=== PATIENT | female | born 1990 | race Caucasian/White ===

== ENCOUNTER 2019-06-09 14:42 | Emergency (ER) | payer MEDICAID ==
[2019-06-09] MEDS ORDERED: FAMOTIDINE 20 MG/2 ML VIAL IV STA (14:51)
[2019-06-09] MEDS ORDERED: methylPREDNISolone SOD SUCCI 125 MG/2 ML VIAL IV STA (14:51)
[2019-06-09] MEDS ORDERED: EPINEPHrine 1 MG/ML 1 ML AMP IM STA (14:52)
[2019-06-09] MEDS ORDERED: SODIUM CHLORIDE 0.9% 500 ML 500 ML IV STA (14:59)
--- NOTE | 2019-06-09 14:59 | ED ---
Allergic Reaction HPI - General Chief complaint: Allergic Reaction Stated complaint: Allergic reaction Time Seen by Provider: 06/09/19 14:51 Source: patient, RN notes reviewed Mode of arrival: ambulatory Limitations: no limitations - History of Present Illness Initial Comments: This is a 29-year-old female with a known history of peanut ALLERGY who states she ate eggroll at a local oriented restaurant when very shortly thereafter she started developing a rash and shortness of breath and pruritus. She states she did take oral Benadryl 75 mg total did not use her EpiPen. She presents now with complaints of itchiness swelling to her face a rash she did take a treatment of her inhaler which has helped her breathing she states. She was wheezing and is now not wheezing. MD Complaint: allergic reaction, facial swelling, other - Related Data Previous Rx's Medication Instructions Recorded predniSONE 20 mg PO BID #10 tab 06/09/19 Allergies Allergy/AdvReac Type Severity Reaction Status Date / Time peanut Allergy Anaphylaxis Verified 06/09/19 14:46 Review of Systems ROS Statement: Those systems with pertinent positive or pertinent negative responses have been documented in the HPI. ROS Other: All systems not noted in ROS Statement are negative. Past Medical History Past Medical History: No Reported History Past Surgical History: No Surgical Hx Reported Past Psychological History: No Psychological Hx Reported Smoking Status: Never smoker Past Alcohol Use History: Unable to Obtain Past Drug Use History: None Reported General Exam - General Exam Comments Initial Comments: This is a well-developed well-nourished awake alert oriented 3 female Limitations: no limitations General appearance: alert, anxious, in distress Head exam: Present: atraumatic, normocephalic, normal inspection Eye exam: Present: other (Facial edema periorbital edema with erythema to the skin) ENT exam: Present: other (Hyperemia posterior pharynx though no evidence of any edema) Neck exam: Present: normal inspection, full ROM, other (No stridor JVD or bruits) Respiratory exam: Present: normal lung sounds bilaterally Cardiovascular Exam: Present: regular rate, tachycardia GI/Abdominal exam: Present: soft, normal bowel sounds. Absent: distended, tenderness, guarding, rebound, rigid Rectal exam: Present: deferred Extremities exam: Present: full ROM, normal capillary refill. Absent: tenderness, pedal edema, joint swelling, calf tenderness Back exam: Present: normal inspection Neurological exam: Present: alert, oriented X3, CN II-XII intact Psychiatric exam: Present: normal affect, anxious Skin exam: Present: warm, dry, intact, erythema (Consistent with ALLERGIC reaction). Absent: normal color, rash Course Vital Signs 06/09/19 06/09/19 06/09/19 14:44 14:56 15:25 Temperature 98.2 F Pulse Rate 120 H 86 Respiratory 22 26 H Rate Blood Pressure 134/71 O2 Sat by Pulse 100 98 Oximetry 06/09/19 15:55 Temperature Pulse Rate 77 Respiratory 16 Rate Blood Pressure 122/71 O2 Sat by Pulse 100 Oximetry - Reevaluation(s) Reevaluation #1: 06/09/19 15:28 Reevaluation patient reveals her color has improved with less erythema she is feeling nauseated at this time she will receive some Zofran. Lung sounds are clear to auscultation. Medical Decision Making - Medical Decision Making Patient is feeling much improved her skin color is return to normal. The edema in her face has improved markedly. Patient does have an epinephrine Home she does have Benadryl and histamine blockers she will be discharged a sinus or course of steroids she was cautioned about heat exposure. He is feeling improved with no nausea at this time no shortness breath or difficulty swallowing Critical Care Time Critical Care Time: Yes Critical Care Time: 31 minutes of critical care time which includes initial presentation with history physical and aggressive treatment in the emergency department. I did reevaluate patient also multiple occasions. This did include also documentation the above. Disposition Clinical Impression: Allergic reaction, Food allergy, Angioedema, Anaphylaxis Disposition: HOME SELF-CARE Condition: Good Instructions (If sedation given, give patient instructions): Anaphylaxis (ED), Peanut Allergy (ED) Prescriptions: predniSONE 20 mg PO BID #10 tab Is patient prescribed a controlled substance at d/c from ED?: No Referrals: Berlin Resendez DO [Primary Care Provider] - 1-2 days
[2019-06-09] MEDS ORDERED: ONDANSETRON 4 MG/2 ML VIAL IVP STA (15:19)
[2019-06-09 15:57] VITALS: BP 122/71; RESP 16
[2019-06-09 16:25] VITALS: PULSE 81; TEMP 98
== END 2019-06-09 16:24 | disposition home or self-care (01) ==
LOC: MERGE 14:42 → EC 14:42
DX: T78.1XXA Other adverse food reactions, not elsewhere classified, initial encounter (principal); T78.3XXA Angioneurotic edema, initial encounter; R00.0 Tachycardia, unspecified; Z91.010 Allergy to peanuts; Z53.20 Procedure and treatment not carried out because of patient's decision for unspecified reasons
CPT/HCPCS: 99285; 96374; 96375 ×2; 96372; J0171; J2930; J2405

== ENCOUNTER 2020-08-31 06:03 | Inpatient (IN) | payer BC, OTHER ==
--- NOTE | 2020-08-30 12:54 | P.HPOB ---
History of Present Illness H&P Date: 08/30/20 Chief Complaint: Induction of labor This is a 30 y.o. female, 1, para 0, with an estimated date of confinement of 08/29/2020, estimated gestational age of 40-2/7 weeks, who presents for induction of labor. She has frequent contractions, pressure, and leg swelling. course has been essentially uncomplicated. labs: GC/Chlamydia-neg Hepatitis B surface antigen-neg RPR-NR Rubella-immune Blood type-A+ Antibody screen-neg Hemoglobin-11.7 Random glucose-78 1 hr. GTT-149 3 hr. 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 Review of Systems Constitutional: Denies chills, Denies fever Eyes: denies blurred vision, denies pain Ears, nose, mouth and throat: Denies headache, Denies sore throat Cardiovascular: Denies chest pain, Denies shortness of breath Respiratory: Denies cough Gastrointestinal: Reports abdominal pain (irregular contractions) Genitourinary: Reports pelvic pain, Reports Musculoskeletal: Reports low back pain Musculoskeletal: bilateral: ankle swelling Integumentary: Denies pruritus, Denies rash Neurological: Denies numbness, Denies weakness Psychiatric: Denies anxiety, Denies depression Past Medical History Past Medical History: Asthma Additional Past Medical History / Comment(s): Migraines History of Any Multi-Drug Resistant Organisms: None Reported Past Surgical History: Breast Surgery (Excision benign mass, R. breast) Additional Past Surgical History / Comment(s): Removal heel spur R. ankle Past Anesthesia/Blood Transfusion Reactions: No Reported Reaction Past Psychological History: No Psychological Hx Reported Smoking Status: Never smoker Past Alcohol Use History: None Reported Past Drug Use History: None Reported - Past Family History Father Family Medical History: Hypertension Medications and Allergies Home Medications Medication Instructions Recorded Confirmed Type Albuterol Sulfate [Ventolin HFA] 1 - 2 puff INHALATION Q6H PRN 08/30/20 08/30/20 History Pnv,Calcium 72/Iron/Folic Acid 1 each PO 08/30/20 History [ Plus Tablet] Allergies Allergy/AdvReac Type Severity Reaction Status Date / Time peanut Allergy Anaphylaxis Verified 06/11/19 13:15 Exam Osteopathic Statement: *. No significant issues noted on an osteopathic structural exam other than those noted in the History and Physical/Consult. HEENT: within normal limits Heart: regular rate and rhythm Lungs: clear to auscultation bilaterally Abdomen: Cervix: 2 cm/70%/-2 heart tones: 140's by doppler Extremities: neg. Lico's Assessment and Plan (1) 40 weeks gestation of Status: Acute Code(s): Z3A.40 - 40 WEEKS GESTATION OF SNOMED Code(s): 60727767 Plan: Proceed with oxytocin induction of labor. Expectant management. Epidural anesthesia if desired.
[2020-08-31] MEDS ORDERED: OXYTOCIN 30 UNITS/500 ML NS 30 UNIT in SALINE 1 500ML.BAG IV SCH ×2 (06:16→18:20)
[2020-08-31] MEDS ORDERED: LIDOCAINE 1% (10MG/ML) FOR IV START INTRADERMA PRN (06:16)
[2020-08-31] MEDS ORDERED: LIDOCAINE 0.5% (PF) 5 MG/ML (50 ML SDV) SQ PRN (06:16)
[2020-08-31] MEDS ORDERED: TERBUTALINE 1 MG/ML VIAL SQ PRN (06:16)
[2020-08-31] MEDS ORDERED: METHYLERGONOVINE 0.2 MG/ML 1 ML AMP IM PRN (06:16)
[2020-08-31] MEDS ORDERED: OXYTOCIN 10 UNIT/ML 1 ML VIAL IM PRN (06:16)
[2020-08-31] MEDS ORDERED: CARBOPROST TROMETHAMINE 250 MCG/ML 1 ML AMP IM PRN (06:16)
[2020-08-31] MEDS: LACTATED RINGERS 1,000 ML IV SCH ×2 (06:30→15:15)
[2020-08-31 06:47] LABS: Basophils % (A) 0 %; Eosinophils # (A) 0.3 k/uL (0-0.7); Eosinophils % (A) 2 %; HCT 38.3 % (34.0-46.0); HGB 13.2 gm/dL (11.4-16.0); Lymphocytes # (A) 2.3 k/uL (1.0-4.8); Lymphocytes % (A) 18 %; MCH 31.4 pg (25.0-35.0); MCHC 34.5 g/dL (31.0-37.0); MCV 91.2 fL (80.0-100.0); Mean Platelet Volume 8.4; Monocytes # (A) 0.5 k/uL (0-1.0); Monocytes % (A) 4 %; Neutrophils # (A) 9.1 k/uL (1.3-7.7); Neutrophils % (A) 74 %; Platelet Count 263 k/uL (150-450); RDW 12.6 % (11.5-15.5); WBC 12.3 k/uL (3.8-10.6)
[2020-08-31] MEDS ORDERED: BUTORPHANOL 1 MG/ML 1 ML VIAL IV PRN (11:03)
[2020-08-31] MEDS ORDERED: ROPIVACAINE 5MG/ML 20ML VIAL ONE (12:25)
[2020-08-31] MEDS ORDERED: SODIUM CHLORIDE 0.9% 100 ML BAG ONE (12:25)
[2020-08-31] MEDS ORDERED: fentaNYL (PF) 50 MCG/ML 5 ML AMP ONE (12:25)
--- NOTE | 2020-08-31 18:09 | P.PROBDLV ---
Vaginal Delivery Note - . Vaginal Delivery Note: The patient progressed to complete dilation after oxytocin induction of labor and artificial rupture membranes with thin meconium noted. She did receive epidural anesthesia. Once reaching complete dilation, she began pushing. Infant's head came to a crown. With one further push, the 's head delivered across the perineum followed by the anterior shoulder. Nose and mouth were bulb suctioned and nuchal cord times one was reduced around the infant's head. With one remaining push, the remainder the infant easily delivered and was placed on mother's abdomen. Cord was clamped and cut and infant was taken to warmer for evaluation by child care coordinator and nursing staff. A viable male is noted with scores of 9 at 1 minute and 9 at 5 minutes and weight of 8 lbs. 7 oz. Placenta delivered shortly thereafter, intact, with a three-vessel cord. Uterus contracted fairly well after oxytocin was given and uterine massage was carried out. Inspection of the perineum revealed a second- degree perineal laceration that extended down to the rectum but not through the muscle. This area was anesthetized with 1% lidocaine and then sutured with 3-0 and 2-0 Vicryl suture in the usual multilayer fashion. Estimated blood loss is approximately 200 mL's. Both mother and infant are in stable condition.
[2020-08-31] MEDS ORDERED: diphenhydrAMINE 50 MG CAP PO PRN (18:20)
[2020-08-31] MEDS ORDERED: ALBUTEROL HFA INHALER INHALATION PRN (18:20)
[2020-08-31] MEDS ORDERED: SIMETHICONE 80 MG CHEWABLE PO PRN (18:20)
[2020-08-31] MEDS ORDERED: LANOLIN CREAM 5 GM TUBE TOPICAL PRN (18:20)
[2020-08-31] MEDS ORDERED: diphenhydrAMINE 50 MG/ML 1 ML VIAL IVP PRN ×2 (18:20)
[2020-08-31] MEDS ORDERED: HYDROCORTISONE 2.5% RECTAL CREAM 30 GM TUBE RECTAL PRN (18:20)
[2020-08-31] MEDS ORDERED: diphenhydrAMINE 25 MG CAP PO PRN (18:20)
[2020-08-31] MEDS ORDERED: ZOLPIDEM 5 MG TAB PO PRN (18:20)
[2020-08-31] MEDS ORDERED: BENZOCAINE/MENTHOL SPRAY 1 GM/SPRAY AEROSOL TOPICAL PRN (18:20)
[2020-08-31] MEDS: IBUPROFEN 600 MG TAB PO SCH (18:28)
[2020-08-31] MEDS: ACETAMINOPHEN TAB 325 MG TAB PO PRN (21:34)
[2020-08-31] MEDS: SENNOSIDES-DOCUSATE SODIUM 1 EACH TAB PO SCH (21:36)
[2020-09-01] MEDS: IBUPROFEN 600 MG TAB PO SCH ×4 (00:23→18:55)
[2020-09-01] MEDS: ACETAMINOPHEN TAB 325 MG TAB PO PRN ×2 (03:47→09:40)
[2020-09-01 06:52] LABS: Basophils % (A) 0 %; Eosinophils # (A) 0.2 k/uL (0-0.7); Eosinophils % (A) 1 %; HCT 33.4 % (34.0-46.0); HGB 11.6 gm/dL (11.4-16.0); Lymphocytes # (A) 1.8 k/uL (1.0-4.8); Lymphocytes % (A) 11 %; MCH 31.9 pg (25.0-35.0); MCHC 34.8 g/dL (31.0-37.0); MCV 91.8 fL (80.0-100.0); Mean Platelet Volume 8.5; Monocytes # (A) 0.8 k/uL (0-1.0); Monocytes % (A) 5 %; Neutrophils # (A) 13.6 k/uL (1.3-7.7); Neutrophils % (A) 82 %; Platelet Count 216 k/uL (150-450); RBC 3.64 m/uL (3.80-5.40); RDW 12.7 % (11.5-15.5); WBC 16.5 k/uL (3.8-10.6)
[2020-09-01] MEDS: SENNOSIDES-DOCUSATE SODIUM 1 EACH TAB PO SCH (07:37)
--- NOTE | 2020-09-01 08:59 | P.DS ---
Providers Date of admission: 08/31/20 06:03 Expected date of discharge: 09/01/20 Attending physician: Marianna Saleem Primary care physician: Stated None - Discharge Diagnosis(es) (1) 40 weeks gestation of Current Visit: No Status: Acute Hospital Course: This is a 30-year-old female 1 para 0 at 40-2/7 weeks who presented for oxytocin induction of labor. She underwent induction of labor and delivered vaginally a viable male on 08/31/2020 with scores of 9 at 1 minute and 9 at 5 minutes and infant weight of 8 lbs. 7 oz. Her course has been essentially uncomplicated. Lochia is decreasing. She is sore on her bottom but ibuprofen has been helping. She is urinating without difficulty. She is breast-feeding. Vital signs are stable. Abdomen is soft with fundus firm and nontender. Extremities show negative Homans. Impression is status post vaginal delivery day #1. Plan is to discharge home later today. Routine instructions are given. She will be given a prescription for ibuprofen and a breast pump. She is advised to call the office if she has any further questions or concerns prior to her appointment time. Procedures: Oxytocin induction of labor Spontaneous vaginal delivery of a viable male infant on 08/31/2020 Patient Condition at Discharge: Stable Plan - Discharge Summary New Discharge Prescriptions: New Ibuprofen [Motrin] 600 mg PO Q6H #60 tab Continue Albuterol Sulfate [Ventolin HFA] 1 - 2 puff INHALATION Q6H PRN PRN Reason: Wheezing Pnv,Calcium 72/Iron/Folic Acid [ Plus Tablet] 1 each PO DAILY Discharge Medication List Albuterol Sulfate [Ventolin HFA] 1 - 2 puff INHALATION Q6H PRN 08/30/20 [History] Pnv,Calcium 72/Iron/Folic Acid [ Plus Tablet] 1 each PO DAILY 08/30/20 [History] Ibuprofen [Motrin] 600 mg PO Q6H #60 tab 09/01/20 [Rx] Follow up Appointment(s)/Referral(s): Marianna Saleem DO [Doctor of Osteopathic Medicine] - 6 Weeks Activity/Diet/Wound Care/Special Instructions: Instructions 1. Do not begin any exercise program for 3 weeks. 2. Do not resume sexual relations for 3 weeks or longer if uncomfortable. 3. You may take tub baths or showers at any time. 4. You may use tampons if desired after 3 weeks. 5. Keep the area of episiotomy (stitches) clean and dry. 6. If you are not nursing, wear a good fitting, supportive bra during the day and limit fluid intake for at least 1 week to prevent breast engorgement. 7. Call the office, [phone], within the next week to make appointment for your 6 week checkup if it has not already been made. 8. Report any of the following occurrences to the doctor promptly: a. Heavy, excessive bleeding b. Chills, fever c. Burning or frequency of urination d. Pain or redness and breasts if nursing e. Increasing pain or swelling in episiotomy (stitches). In addition to the above instructions, the following additional should be followed: 1. No heavy lifting or straining (exercising) until after 6 week checkup. 2. Keep abdominal incision clean and dry: You may wear a dressing if more comfortable. 3. Make office appointment for 10 days after going home or as instructed by her doctor. Discharge Disposition: HOME SELF-CARE
[2020-09-01] MEDS ORDERED: PRENATAL VIT-IRON-FOLIC ACID 1 EACH CAP PO SCH (09:00)
[2020-09-01 11:54] VITALS: RESP 18
[2020-09-01 15:52] VITALS: BP 112/71; PULSE 80; TEMP 98.5
== END 2020-09-01 18:30 | disposition home or self-care (01) | DRG 807 ==
LOC: 4FBP 06:03
PROVIDERS: ADMIT Obstetrics & Gynecology; ATTEND Obstetrics & Gynecology
PROC: 10E0XZZ Delivery of Products of Conception, External Approach (ICD-10-PCS; principal; 2020-08-31)
PROC: 3E033VJ Introduction of Other Hormone into Peripheral Vein, Percutaneous Approach (ICD-10-PCS; principal; 2020-08-31)
PROC: 3E0R3NZ Introduction of Analgesics, Hypnotics, Sedatives into Spinal Canal, Percutaneous Approach (ICD-10-PCS; principal; 2020-08-31)
PROC: 00HU33Z Insertion of Infusion Device into Spinal Canal, Percutaneous Approach (ICD-10-PCS; principal; 2020-08-31)
PROC: 10907ZC Drainage of Amniotic Fluid, Therapeutic from Products of Conception, Via Natural or Artificial Opening (ICD-10-PCS; principal; 2020-08-31)
DX: O99.52 Diseases of the respiratory system complicating childbirth (principal); Z37.0 Single live birth; J45.909 Unspecified asthma, uncomplicated; O69.81X0 Labor and delivery complicated by cord around neck, without compression, not applicable or unspecified; O77.0 Labor and delivery complicated by meconium in amniotic fluid; Z3A.40 40 weeks gestation of pregnancy; Z82.49 Family history of ischemic heart disease and other diseases of the circulatory system; Z91.010 Allergy to peanuts
CPT/HCPCS: 85025; 86850; 86900; 86901; 88307

== ENCOUNTER → 2022-05-31 | Outpatient (CLI) | payer BC, OTHER ==
[2022-05-31 14:26] LABS: Glucose 3 Hour, Gest 156 mg/dL
== END | disposition home or self-care (01) ==
LOC: LABWHC1 08:50
PROVIDERS: ATTEND Obstetrics & Gynecology
DX: O99.810 Abnormal glucose complicating pregnancy (principal); Z3A.00 Weeks of gestation of pregnancy not specified
CPT/HCPCS: 36415; 82951; 82952

== ENCOUNTER 2022-08-26 06:00 | Inpatient (IN) | payer BC, OTHER ==
--- NOTE | 2022-08-25 20:03 | P.HPOB ---
History of Present Illness H&P Date: 08/25/22 Chief Complaint: Induction of labor This is a 32 y.o. female, 2, para 1, with an estimated date of confinement of 08/27/2022, estimated gestational age of 39-6/7 weeks, who presents for induction of labor due to gestational diabetes, diet-controlled. She complains of frequent contractions and pressure. Her sugars have been well- controlled. She has occasionally had a arrhythmia noted on NSTs in the office, but it has not been persistent. labs: GC/Chlamydia/Trich-neg Hepatitis B surface antigen-neg RPR-NR Rubella-immune Blood type-A+ Antibody screen-neg HIV-NR Hemoglobin-12.5 Random glucose-72 1 hr. GTT-162; 3 hr.-2 values high GBS-neg OB Hx: . 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 Social Hx: No hx STDs Review of Systems Constitutional: Denies chills, Denies fever Eyes: denies blurred vision, denies pain Ears, nose, mouth and throat: Denies headache, Denies sore throat Cardiovascular: Denies chest pain, Denies shortness of breath Respiratory: Denies cough Gastrointestinal: Reports abdominal pain (irregular contractions) Genitourinary: Reports pelvic pain, Reports Musculoskeletal: Reports low back pain Integumentary: Denies pruritus, Denies rash Neurological: Denies numbness, Denies weakness Psychiatric: Denies anxiety, Denies depression Past Medical History Past Medical History: Asthma Additional Past Medical History / Comment(s): Migraines History of Any Multi-Drug Resistant Organisms: None Reported Past Surgical History: Breast Surgery (R. breast lumpectomy-benign) Additional Past Surgical History / Comment(s): Removal heel spur R. ankle Past Anesthesia/Blood Transfusion Reactions: No Reported Reaction Past Psychological History: No Psychological Hx Reported Smoking Status: Never smoker Past Alcohol Use History: None Reported Past Drug Use History: None Reported - Past Family History Father Family Medical History: Hypertension Medications and Allergies Home Medications Medication Instructions Recorded Confirmed Type Albuterol Sulfate [Ventolin HFA] 1 - 2 puff INHALATION Q6H PRN 08/30/20 08/31/20 History Vit No.180/Iron/Folic 1 each PO DAILY 08/30/20 08/31/20 History [ Plus Vitamin-Mineral] Allergies Allergy/AdvReac Type Severity Reaction Status Date / Time peanut Allergy Anaphylaxis Verified 08/31/20 06:16 Exam Osteopathic Statement: *. No significant issues noted on an osteopathic structural exam other than those noted in the History and Physical/Consult. HEENT: within normal limits Heart: regular rate and rhythm Lungs: clear to auscultation bilaterally Abdomen: , non-tender Cervix: 3+/70%/-1 heart tones: 140's by doppler Extremities: neg. Lico's Assessment and Plan (1) 39 weeks gestation of Status: Acute Code(s): Z3A.39 - 39 WEEKS GESTATION OF SNOMED Code(s): 01891937 (2) Gestational diabetes mellitus, diet-controlled Status: Acute Code(s): O24.410 - GESTATIONAL DIABETES MELLITUS IN , DIET CONTROLLED SNOMED Code(s): 59263784 Plan: Proceed with oxytocin induction of labor. Expectant management. Epidural anesthesia if desired.
[2022-08-26] MEDS ORDERED: CARBOPROST TROMETHAMINE 250 MCG/ML 1 ML AMP IM PRN (06:18)
[2022-08-26] MEDS ORDERED: OXYTOCIN 10 UNIT/ML 1 ML VIAL IM PRN (06:18)
[2022-08-26] MEDS ORDERED: miSOPROStoL 200 MCG TAB PO PRN (06:18)
[2022-08-26] MEDS ORDERED: LIDOCAINE 1% (10MG/ML) FOR IV START INTRADERMA PRN (06:18)
[2022-08-26] MEDS ORDERED: OXYTOCIN 30 UNITS/500 ML NS 30 UNIT in SALINE 1 500ML.BAG IV SCH ×2 (06:18→13:44)
[2022-08-26] MEDS ORDERED: LIDOCAINE 0.5% (PF) 5 MG/ML (50 ML SDV) SQ PRN (06:18)
[2022-08-26] MEDS ORDERED: METHYLERGONOVINE 0.2 MG/ML 1 ML AMP IM PRN (06:18)
[2022-08-26] MEDS ORDERED: TRANEXAMIC ACID IN NACL,ISO-OS 1,000 MG in EMPTY BAG 1 BAG IV PRN (06:18)
[2022-08-26] MEDS ORDERED: LACTATED RINGERS 1,000 ML IV SCH (06:18)
[2022-08-26] MEDS ORDERED: TERBUTALINE 1 MG/ML VIAL SQ PRN (06:18)
[2022-08-26 06:28] LABS: Glucose,Whole Blood 77 mg/dL (70-110)
[2022-08-26 06:44] VITALS: RESP 16
[2022-08-26 08:18] LABS: Basophils % (A) 0 %; Eosinophils # (A) 0.1 k/uL (0-0.7); Eosinophils % (A) 1 %; HCT 36.4 % (34.0-46.0); HGB 12.5 gm/dL (11.4-16.0); Lymphocytes # (A) 1.6 k/uL (1.0-4.8); Lymphocytes % (A) 18 %; MCH 30.6 pg (25.0-35.0); MCHC 34.4 g/dL (31.0-37.0); MCV 88.9 fL (80.0-100.0); Mean Platelet Volume 10.7; Monocytes # (A) 0.3 k/uL (0-1.0); Monocytes % (A) 3 %; Neutrophils # (A) 6.6 k/uL (1.3-7.7); Neutrophils % (A) 75 %; Platelet Count 245 k/uL (150-450); RBC 4.09 m/uL (3.80-5.40); RDW 13.5 % (11.5-15.5); WBC 8.8 k/uL (3.8-10.6)
[2022-08-26] MEDS ORDERED: HYDROCORTISONE 2.5% RECTAL CREAM 30 GM TUBE RECTAL PRN (13:44)
[2022-08-26] MEDS ORDERED: LANOLIN CREAM 5 GM TUBE TOPICAL PRN (13:44)
[2022-08-26] MEDS ORDERED: SIMETHICONE 80 MG CHEWABLE PO PRN (13:44)
[2022-08-26] MEDS ORDERED: BENZOCAINE/MENTHOL SPRAY 1 GM/SPRAY AEROSOL TOPICAL PRN (13:44)
[2022-08-26] MEDS ORDERED: diphenhydrAMINE 25 MG CAP PO PRN (13:44)
[2022-08-26] MEDS ORDERED: diphenhydrAMINE 50 MG CAP PO PRN (13:44)
[2022-08-26] MEDS ORDERED: ZOLPIDEM 5 MG TAB PO PRN (13:44)
[2022-08-26] MEDS ORDERED: diphenhydrAMINE 50 MG/ML 1 ML VIAL IVP PRN ×2 (13:44)
[2022-08-26] MEDS: IBUPROFEN 600 MG TAB PO PRN ×2 (14:10→20:25)
[2022-08-26] MEDS: ACETAMINOPHEN TAB 325 MG TAB PO PRN ×2 (16:24→23:45)
--- NOTE | 2022-08-26 17:42 | P.PROBDLV ---
Vaginal Delivery Note - . Vaginal Delivery Note: The patient did use nitrous oxide in labor for pain control. Once reaching complete, she began pushing. 's head came to a crown. With one further push, the 's head delivered across the perineum followed by the anterior shoulder. Nose and mouth were bulb suctioned. With one further push, the remainder the infant easily delivered and was placed on mother's abdomen. Cord was clamped and cut after waiting for cord to finish pulsating and infant was taken to warmer for evaluation. A viable female infant was noted with scores of 8 at 1 minute and 9 at 5 minutes and weight of 8 lbs. 5 oz. Placenta delivered shortly thereafter, intact, with a three-vessel cord. Bladder was drained with a straight cath. Uterus contracted fairly well after oxytocin was given and uterine massage was carried out. Inspection of the perineum revealed a second-degree perineal laceration. This area was anesthetized with 1% lidocaine and then sutured with 3-0 and 2-0 Vicryl suture in the usual multilayer fashion. Estimated blood loss is approximately 100 mL's. Both mother and infant are in stable condition.
[2022-08-26] MEDS: SENNOSIDES-DOCUSATE SODIUM 1 EACH TAB PO SCH (20:25)
[2022-08-26] MEDS: MAGNESIUM OXIDE 400 MG TAB PO SCH (21:50)
[2022-08-27] MEDS: IBUPROFEN 600 MG TAB PO PRN ×3 (02:20→14:04)
[2022-08-27 07:36] LABS: Basophils % (A) 0 %; Eosinophils # (A) 0.2 k/uL (0-0.7); Eosinophils % (A) 2 %; HGB 11.2 gm/dL (11.4-16.0); Lymphocytes # (A) 1.5 k/uL (1.0-4.8); Lymphocytes % (A) 13 %; MCH 31.1 pg (25.0-35.0); MCV 91.4 fL (80.0-100.0); Mean Platelet Volume 9.5; Monocytes # (A) 0.4 k/uL (0-1.0); Monocytes % (A) 3 %; Neutrophils # (A) 8.8 k/uL (1.3-7.7); Neutrophils % (A) 81 %; Platelet Count 190 k/uL (150-450); RBC 3.61 m/uL (3.80-5.40); RDW 13.1 % (11.5-15.5)
[2022-08-27 08:19] VITALS: BP 107/66; PULSE 99; TEMP 98.6
[2022-08-27] MEDS: SENNOSIDES-DOCUSATE SODIUM 1 EACH TAB PO SCH (08:20)
[2022-08-27] MEDS: MAGNESIUM OXIDE 400 MG TAB PO SCH (08:20)
--- NOTE | 2022-08-27 09:24 | P.DS ---
Providers Date of admission: 08/26/22 06:03 Expected date of discharge: 08/27/22 Attending physician: Marianna Saleem Primary care physician: Stated None - Discharge Diagnosis(es) (1) 39 weeks gestation of Current Visit: No Status: Acute (2) Gestational diabetes mellitus, diet-controlled Current Visit: No Status: Acute Hospital Course: This is a 32-year-old female 2 para 1 at 39-6/7 weeks who presented for induction of labor due to gestational diabetes. She delivered vaginally a viable female infant with scores of 8 at 1 minute and 9 at 5 minutes and weight of 8 lbs. 5 oz. Her course has been uncomplicated. She has been breast-feeding. Lochia has been decreasing. Her pain is been fairly well-controlled with ibuprofen and Tylenol. Vital signs are stable. Abdomen is soft with fundus firm and nontender. Extremities show negative Hernandez ans. Impression is status post vaginal delivery day #1. Plan is to discharge home today. Routine instructions are given. She will be given a prescription for ibuprofen. She will also be given a prescription for a few Senokot S due to constipation. She is advised to follow up in the office in 6 weeks for a check. She is advised to call the office if she has a ny further questions or concerns prior to her appointment time. Procedures: Oxytocin induction of labor Spontaneous vaginal delivery of a viable female on 08/26/2022 Patient Condition at Discharge: Stable Plan - Discharge Summary New Discharge Prescriptions: New Sennosides-Docusate Sodium [Senokot-S] 2 each PO BID@0800,1999 #14 tab Docusate [Colace] 100 mg PO DAILY #30 capsule Ibuprofen [Motrin] 600 mg PO Q6HR PRN #60 tab PRN Reason: Mild Pain (Scale 1 To 3) Continue Vit No.180/Iron/Folic [ Plus Vitamin-Mineral] 1 each PO DAILY No Action Albuterol Sulfate [Ventolin HFA] 1 - 2 puff INHALATION Q6H PRN PRN Reason: Wheezing Discharge Medication List Albuterol Sulfate [Ventolin HFA] 1 - 2 puff INHALATION Q6H PRN 08/30/20 [History] Vit No.180/Iron/Folic [ Plus Vitamin-Mineral] 1 each PO DAILY 04/04/21 [History] Docusate [Colace] 100 mg PO DAILY #30 capsule 08/27/22 [Rx] Ibuprofen [Motrin] 600 mg PO Q6HR PRN #60 tab 08/27/22 [Rx] Sennosides-Docusate Sodium [Senokot-S] 2 each PO BID@0800,1999 #14 tab 08/27/22 [Rx] Follow up Appointment(s)/Referral(s): Marianna Saleem DO [Doctor of Osteopathic Medicine] - 10/05/22 4:00 pm Activity/Diet/Wound Care/Special Instructions: Instructions 1. Do not begin any exercise program for 3 weeks. 2. Do not resume sexual relations for 3 weeks or longer if uncomfortable. 3. You may take tub baths or showers at any time. 4. You may use tampons if desired after 3 weeks. 5. Keep the area of episiotomy (stitches) clean and dry. 6. If you are not nursing, wear a good fitting, supportive bra during the day and limit fluid intake for at least 1 week to prevent breast engorgement. 7. Call the office, [phone], within the next week to make appointment for your 6 week checkup if it has not already been made. 8. Report any of the following occurrences to the doctor promptly: a. Heavy, excessive bleeding b. Chills, fever c. Burning or frequency of urination d. Pain or redness and breasts if nursing e. Increasing pain or swelling in episiotomy (stitches). In addition to the above instructions, the following additional should be followed: 1. No heavy lifting or straining (exercising) until after 6 week checkup. 2. Keep abdominal incision clean and dry: You may wear a dressing if more comfortable. 3. Make office appointment for 10 days after going home or as instructed by her doctor. Discharge Disposition: HOME SELF-CARE
[2022-08-27] MEDS: ACETAMINOPHEN TAB 325 MG TAB PO PRN (11:31)
== END 2022-08-27 14:25 | disposition home or self-care (01) | DRG 806 ==
LOC: 4FBP 06:03
PROVIDERS: ADMIT Obstetrics & Gynecology; ATTEND Obstetrics & Gynecology
PROC: 10E0XZZ Delivery of Products of Conception, External Approach (ICD-10-PCS; principal; 2022-08-26)
PROC: 0KQM0ZZ Repair Perineum Muscle, Open Approach (ICD-10-PCS; 2022-08-26)
PROC: 4A0HXCZ Measurement of Products of Conception, Cardiac Rate, External Approach (ICD-10-PCS; 2022-08-26)
PROC: 3E033VJ Introduction of Other Hormone into Peripheral Vein, Percutaneous Approach (ICD-10-PCS; 2022-08-26)
DX: O24.420 Gestational diabetes mellitus in childbirth, diet controlled (principal); O99.354 Diseases of the nervous system complicating childbirth; Z37.0 Single live birth; O70.1 Second degree perineal laceration during delivery; O76 Abnormality in fetal heart rate and rhythm complicating labor and delivery; G43.909 Migraine, unspecified, not intractable, without status migrainosus; O99.52 Diseases of the respiratory system complicating childbirth; J45.909 Unspecified asthma, uncomplicated; Z3A.39 39 weeks gestation of pregnancy
CPT/HCPCS: 83036; 85025; 86850; 86900; 86901